=== PATIENT | male | born 1950 | race Caucasian/White ===

== ENCOUNTER → 2023-08-05 | Outpatient (CLI) | payer MEDICARE ==
--- NOTE | 2023-08-05 17:10 | MR ---
EXAMINATION TYPE: MR brain wo con DATE OF EXAM: 08/05/2023 4:31 PM CLINICAL INDICATION:Male, 73 years old with history of G40.909 EPILEPSY, UNSP, NOT INTRACTABLE, WITHO UT S; PHH, Parkinson's disease. Seizure COMPARISON: None. TECHNIQUE: Multi planar, multi sequence imaging was performed through the brain including: T1, T2, In version recovery, Diffusion weighted imaging, and gradient echo imaging. No gadolinium was given. FINDINGS: Mild cerebral atrophy with proportional dilation of ventricular system. Minimal scattered foci of h igh T2 signal intensity are seen within the periventricular white matter. Midline structures show no abnormality. Diffusion-weighted imaging shows no evidence of restricted diffusion. The susceptibility weighted images do not reveal any evidence for micro-hemorrhage. The bone marrow signal is within normal limits. Paranasal sinuses and mastoid air cells: Moderate paranasal sinus mucosal thickening in the maxillary sinuses right greater than left. Visualized orbits: Orbital contents are intact. IMPRESSION: 1. No evidence of intracranial mass or acute/subacute infarct. 2. Mild cerebral atrophy changes with proportional dilation to the ventricular system. 3. Minimal nonspecific white matter changes, likely secondary to small vessel ischemic disease.
== END | disposition home or self-care (01) ==
LOC: RADMRIMAIN 15:44
PROVIDERS: ATTEND Psychiatry & Neurology Neurology
DX: G40.909 Epilepsy, unspecified, not intractable, without status epilepticus (principal); G31.9 Degenerative disease of nervous system, unspecified; R90.82 White matter disease, unspecified; I67.82 Cerebral ischemia; G20.A1 Parkinson's disease without dyskinesia, without mention of fluctuations
CPT/HCPCS: 70551

== ENCOUNTER 2024-02-08 23:39 | Emergency (ER) | payer MEDICARE ==
[2024-02-08 23:48] VITALS: TEMP 98.3
--- NOTE | 2024-02-09 02:15 | ED ---
General Adult HPI - General Chief complaint: Shortness of Breath Stated complaint: ORAL PAIN Time Seen by Provider: 02/09/24 01:39 Source: patient Mode of arrival: wheelchair Limitations: no limitations - History of Present Illness Initial comments: This patient is a 73-year-old man who presents to have evaluation of sore throat and difficulty swallowing. The patient notes that it came a little over a week ago. He had called his physician, had a phone interview and then was prescribed a course of azithromycin which she has finished. Patient complains of pain that is worse with swallowing. The patient states that it feels like he is congested in his throat. He is able to swallow. Has not noted change in voice. No fever. Onset/Timin -: week(s) Quality: aching Consistency: constant Improves with: none Worsens with: other (Swallowing) Associated Symptoms: denies other symptoms Treatments Prior to Arrival: none - Related Data Home Medications Medication Instructions Recorded Confirmed Aspirin EC [Ecotrin] 325 mg PO DAILY 02/09/24 02/09/24 Carbidopa-Levodopa 25-100 mg 1 tab PO TID 02/09/24 02/09/24 [Sinemet 25-100 mg] Furosemide [Lasix] 20 mg PO DAILY 02/09/24 02/09/24 Metoprolol Succinate (ER) [Toprol 100 mg PO DAILY 02/09/24 02/09/24 XL] rOPINIRole HCL [Requip] 3 mg PO TID 02/09/24 02/09/24 Previous Rx's Medication Instructions Recorded Folic Acid 1 mg PO DAILY tab 02/12/24 Multivitamins, Thera [Multivitamin 1 each PO DAILY tab 02/12/24 (formulary)] Thiamine [Vitamin B-1] 100 mg PO DAILY tab 02/12/24 Allergies Allergy/AdvReac Type Severity Reaction Status Date / Time No Known Allergies Allergy Verified 02/09/24 16:29 Review of Systems ROS Statement: Those systems with pertinent positive or pertinent negative responses have been documented in the HPI. ROS Other: All systems not noted in ROS Statement are negative. Constitutional: Denies: fever, chills, weakness ENT: Reports: throat pain, congestion. Denies: hearing loss Respiratory: Reports: cough. Denies: dyspnea, wheezes Cardiovascular: Denies: chest pain, palpitations, orthopnea, edema Gastrointestinal: Denies: abdominal pain, nausea, vomiting, diarrhea Skin: Denies: rash Neurological: Denies: headache, weakness Past Medical History Past Medical History: Hypertension Additional Past Medical History / Comment(s): parkinsons History of Any Multi-Drug Resistant Organisms: None Reported Past Surgical History: Hernia Repair Past Psychological History: No Psychological Hx Reported Smoking Status: Never smoker Past Alcohol Use History: Occasional Past Drug Use History: None Reported General Exam Limitations: no limitations General appearance: alert, in no apparent distress Head exam: Present: atraumatic, normocephalic Eye exam: Present: normal appearance. Absent: scleral icterus, conjunctival injection Neck exam: Present: normal inspection, full ROM. Absent: lymphadenopathy Respiratory exam: Present: rhonchi. Absent: respiratory distress, wheezes, rales, stridor, accessory muscle use Cardiovascular Exam: Present: regular rate, normal rhythm, normal heart sounds. Absent: systolic murmur, diastolic murmur, rubs, gallop GI/Abdominal exam: Present: soft. Absent: distended, tenderness, guarding, rebound, rigid Extremities exam: Present: normal inspection, normal capillary refill. Absent: pedal edema Back exam: Present: normal inspection Skin exam: Present: warm, dry, intact, normal color. Absent: rash Course Vital Signs 02/08/24 02/09/24 02/09/24 23:43 00:34 01:30 Temperature 98.3 F Pulse Rate 105 H 80 84 Respiratory 16 20 12 Rate Blood Pressure 120/73 111/61 136/71 O2 Sat by Pulse 99 99 100 Oximetry 02/09/24 02/09/24 02/09/24 03:00 04:16 05:19 Temperature Pulse Rate 90 87 77 Respiratory 17 18 18 Rate Blood Pressure 129/66 115/71 135/78 O2 Sat by Pulse 98 99 98 Oximetry Medical Decision Making - Medical Decision Making The patient had chest x-ray that I interpreted as negative for acute infiltrate, pneumothorax, congestive heart failure. The patient had CT scan soft tissue of the neck that I interpreted as showing some dilation of the esophagus down into the chest. No airway impingement. Was pt. sent in by a medical professional or institution (, PA, [employer]URSING, urgent care, hospital, or fdc...) When possible be specific @ -[No] Did you speak to anyone other than the patient for history (EMS, parent, family, police, friend...)? What history was obtained from this source @ -[Family did contribute history Did you review nursing and triage notes (agree or disagree)? Why? @ -[I reviewed and agree with nursing and triage notes] Were old charts reviewed (outside hosp., previous admission, EMS record, old EKG, old radiological studies, urgent care reports/EKG's, fdc records)? Report findings @ -[No old charts were reviewed] Differential Diagnosis (chest pain, altered mental status, abdominal pain women, abdominal pain men, vaginal bleeding, weakness, fever, dyspnea, syncope, headache, dizziness, GI bleed, back pain, seizure, CVA, palpatations, mental health, musculoskeletal)? @ -[Differential diagnosis includes pharyngitis, upper respiratory infection, abscess, pneumonia, aspiration, achalasia, malignancy, this list not comprehensive EKG interpreted by me (3pts min.). @ -[As above] X-rays interpreted by me (1pt min.). @ -[I interpreted as above CT interpreted by me (1pt min.). @ -[As above U/S interpreted by me (1pt. min.). @ -[None done] What testing was considered but not performed or refused? (CT, X-rays, U/S, labs)? Why? @ -[None] What meds were considered but not given or refused? Why? @ -[None] Did you discuss the management of the patient with other professionals (professionals i.e. , PA, [employer] NURSING, lab, RT, psych nurse, director social welfare, narcotics and/or vice detective, teacher, aviation tactical readiness officer, outpatient case manager)? Give summary @ -[No] Was smoking cessation discussed for >3mins.? @ -[No] Was critical care preformed (if so, how long)? @ -[No] Were there social determinants of health that impacted care today? How? (Homelessness, low income, unemployed, alcoholism, drug addiction, transportation, low edu. Level, literacy, decrease access to med. care, [facility], rehab)? @ -[No] Was there de-escalation of care discussed even if they declined (Discuss DNR or withdrawal of care, Hospice)? DNR status @ -[No] What co-morbidities impacted this encounter? (DM, HTN, Smoking, COPD, CAD, Cancer, CVA, ARF, Chemo, Hep., AIDS, mental health diagnosis, sleep apnea, morbid obesity)? @ -[None] Was patient admitted / discharged? Hospital course, mention meds given and route, prescriptions, significant lab abnormalities, going to OR and other pertinent info. @ -[Patient is 74-year-old man presenting with cough and sore throat. He is sent for CT and is found to have what appears to be some esophageal dilation the distal end which is not visible on CT scan. At this point patient will require further swallowing study. This was discussed and the patient will attempt to have this through outpatient radiology, discussed return parameters as well as the appropriate further care and follow-up Undiagnosed new problem with uncertain prognosis? @ -[No] Drug Therapy requiring intensive monitoring for toxicity (Heparin, Nitro, Insulin, Cardizem)? @ -[No] Were any procedures done? @ -[No] Diagnosis/symptom? @ -[Acute sore throat Esophageal dysmotility Acute, or Chronic, or Acute on Chronic? @ -[Acute Uncomplicated (without systemic symptoms) or Complicated (systemic symptoms)? @ -[default] Side effects of treatment? @ -[No] Exacerbation, Progression, or Severe Exacerbation? @ -[No] Poses a threat to life or bodily function? How? (Chest pain, USA, AR, pneumonia, PE, COPD, DKA, ARF, appy, cholecystitis, CVA, Diverticulitis, Homicidal, Suicid al, threat to staff... and all critical care pts) @ -[Yes there is definite possibility of life-threatening condition including malignancy that patient understands requires further workup with close follow-up and return parameters discussed - Lab Data Result diagrams: 02/09/24 02:08 02/09/24 02:21 Lab Results 02/09/24 02/09/24 02/09/24 Range/Units 02:08 02:21 02:21 WBC 10.2 (3.8-10.6) k/uL RBC 4.72 (4.30-5.90) m/uL Hgb 14.3 (13.0-17.5) gm/dL Hct 42.6 (39.0-53.0) % MCV 90.2 (80.0-100.0) fL MCH 30.3 (25.0-35.0) pg MCHC 33.6 (31.0-37.0) g/dL RDW 14.9 (11.5-15.5) % Plt Count 263 (150-450) k/uL MPV 7.4 Neutrophils % 73 % Lymphocytes % 18 % Monocytes % 5 % Eosinophils % 2 % Basophils % 0 % Neutrophils # 7.4 (1.3-7.7) k/uL Lymphocytes # 1.8 (1.0-4.8) k/uL Monocytes # 0.5 (0-1.0) k/uL Eosinophils # 0.2 (0-0.7) k/uL Basophils # 0.0 (0-0.2) k/uL Sodium 139 (137-145) mmol/L Potassium 4.2 (3.5-5.1) mmol/L Chloride 107 (98-107) mmol/L Carbon Dioxide 30 (22-30) mmol/L Anion Gap 2 mmol/L BUN 11 (9-20) mg/dL Creatinine 0.60 L (0.66-1.25) mg/dL Est GFR (CKD-EPI)AfAm >90 (>60 ml/min/1.73 sqM) Est GFR (CKD-EPI)NonAf >90 (>60 ml/min/1.73 sqM) Glucose 95 (74-99) mg/dL Calcium 9.2 (8.4-10.2) mg/dL Total Bilirubin 1.6 H (0.2-1.3) mg/dL AST 30 (17-59) U/L ALT <6 (4-49) U/L Alkaline Phosphatase 94 (38-126) U/L C-Reactive Protein 0.8 (<1.0) mg/dL Total Protein 7.5 (6.3-8.2) g/dL Albumin 4.4 (3.5-5.0) g/dL Influenza Type A (PCR) (Not Detectd) Influenza Type B (PCR) (Not Detectd) RSV (PCR) (Not Detectd) SARS-CoV-2 (PCR) (Not Detectd) Group A Strep (PCR) NOT DETECTED (Not Detectd) 02/09/24 Range/Units 02:21 WBC (3.8-10.6) k/uL RBC (4.30-5.90) m/uL Hgb (13.0-17.5) gm/dL Hct (39.0-53.0) % MCV (80.0-100.0) fL MCH (25.0-35.0) pg MCHC (31.0-37.0) g/dL RDW (11.5-15.5) % Plt Count (150-450) k/uL MPV Neutrophils % % Lymphocytes % % Monocytes % % Eosinophils % % Basophils % % Neutrophils # (1.3-7.7) k/uL Lymphocytes # (1.0-4.8) k/uL Monocytes # (0-1.0) k/uL Eosinophils # (0-0.7) k/uL Basophils # (0-0.2) k/uL Sodium (137-145) mmol/L Potassium (3.5-5.1) mmol/L Chloride (98-107) mmol/L Carbon Dioxide (22-30) mmol/L Anion Gap mmol/L BUN (9-20) mg/dL Creatinine (0.66-1.25) mg/dL Est GFR (CKD-EPI)AfAm (>60 ml/min/1.73 sqM) Est GFR (CKD-EPI)NonAf (>60 ml/min/1.73 sqM) Glucose (74-99) mg/dL Calcium (8.4-10.2) mg/dL Total Bilirubin (0.2-1.3) mg/dL AST (17-59) U/L ALT (4-49) U/L Alkaline Phosphatase (38-126) U/L C-Reactive Protein (<1.0) mg/dL Total Protein (6.3-8.2) g/dL Albumin (3.5-5.0) g/dL Influenza Type A (PCR) Not Detected (Not Detectd) Influenza Type B (PCR) Not Detected (Not Detectd) RSV (PCR) Not Detected (Not Detectd) SARS-CoV-2 (PCR) Not Detected (Not Detectd) Group A Strep (PCR) (Not Detectd) Disposition Clinical Impression: Cough, Esophageal abnormality Disposition: HOME SELF-CARE Condition: Good Instructions (If sedation given, give patient instructions): Esophagitis (ED), Aspiration Precautions (ED) Additional Instructions: As we discussed, follow with outpatient radiology to have a barium swallow. Is patient prescribed a controlled substance at d/c from ED?: No Referrals: Dhaval Fontana DO [Primary Care Provider] - 1-2 days
--- NOTE | 2024-02-09 02:37 | XR ---
EXAM: XR Chest, 2 Views CLINICAL HISTORY: ITS.REASON XR Reason: cough TECHNIQUE: Frontal and lateral views of the chest. COMPARISON: No relevant prior studies available. IMPRESSION: Mild right pleural effusion.
[2024-02-09 02:39] LABS: Basophils % (A) 0 %; Eosinophils # (A) 0.2 k/uL (0-0.7); Eosinophils % (A) 2 %; HCT 42.6 % (39.0-53.0); HGB 14.3 gm/dL (13.0-17.5); Lymphocytes # (A) 1.8 k/uL (1.0-4.8); Lymphocytes % (A) 18 %; MCH 30.3 pg (25.0-35.0); MCHC 33.6 g/dL (31.0-37.0); MCV 90.2 fL (80.0-100.0); Mean Platelet Volume 7.4; Monocytes # (A) 0.5 k/uL (0-1.0); Monocytes % (A) 5 %; Neutrophils # (A) 7.4 k/uL (1.3-7.7); Neutrophils % (A) 73 %; Platelet Count 263 k/uL (150-450); RBC 4.72 m/uL (4.30-5.90); RDW 14.9 % (11.5-15.5); WBC 10.2 k/uL (3.8-10.6)
[2024-02-09 03:12] LABS: ALT <6 U/L (4-49); AST 30 U/L (17-59); African American GFR (CKD) >90 (>60 ml/min/1.73 sqM); Albumin 4.4 g/dL (3.5-5.0); Alkaline Phosphatase 94 U/L (38-126); Anion Gap 2 mmol/L; Blood Urea Nitrogen 11 mg/dL (9-20); C Reactive Protein 0.8 mg/dL (<1.0); Calcium 9.2 mg/dL (8.4-10.2); Carbon Dioxide 30 mmol/L (22-30); Chloride 107 mmol/L (98-107); Glucose 95 mg/dL (74-99); Non-African American GFR(CKD) >90 (>60 ml/min/1.73 sqM); Potassium 4.2 mmol/L (3.5-5.1); Sodium 139 mmol/L (137-145); Total Bilirubin 1.6 mg/dL (0.2-1.3); Total Protein 7.5 g/dL (6.3-8.2)
[2024-02-09 04:17] VITALS: RESP 18
--- NOTE | 2024-02-09 04:21 | CT ---
EXAM: CT Neck With Intravenous Contrast CLINICAL HISTORY: ITS.REASON CT Reason: dsyphagia TECHNIQUE: Axial computed tomography images of the neck with intravenous contrast. CTDI is 7 mGy and DLP is 212.9 mGy-cm. This CT exam was performed using one or more of the following dose reduction techniques: automated exposure control, adjustment of the mA and/or kV according to patient size, and/or use of iterative reconstruction technique. COMPARISON: No relevant prior studies available. FINDINGS: Nasal cavity/septum: Unremarkable. Nasopharynx: Unremarkable. Oropharynx: Unremarkable. No significant tonsillar enlargement. No peritonsillar abscess. Hypopharynx: Unremarkable. Larynx: Unremarkable. Normal epiglottis. Trachea: Unremarkable. Retropharyngeal space: Unremarkable. Submandibular/parotid glands: Unremarkable. Glands are normal in size. Thyroid: Unremarkable. No enlarged or calcified nodules. Bones/joints: No acute fracture. Extensive dental caries with numerous. Crohn's disease about residual maxillary and mandibular teeth concerning for periapical abscesses. Recommend dental consult. Soft tissues: There is an air-filled and dilated esophagus. Vasculature: No acute findings. Lymph nodes: Prominent cervical lymph nodes. Sinuses: Chronic maxillary sinusitis. No acute sinusitis. Lung apices: Unremarkable as visualized. IMPRESSION: Air-filled and dilated esophagus concerning for distal esophageal stenosis. Recommend barium swallow study for further evaluation.
[2024-02-09 05:20] VITALS: BP 135/78; PULSE 77
== END 2024-02-09 05:19 | disposition home or self-care (01) ==
LOC: EC 23:39
CPT/HCPCS: 36415; 70491; 71046; 80053; 85025; 86140; 87636; 87651; 99285

== ENCOUNTER 2024-02-09 14:25 | Observation (INO) | payer MEDICARE ==
[2024-02-09] MEDS: methylPREDNISolone SOD SUCCI 125 MG/2 ML VIAL IV STA (14:54)
[2024-02-09] MEDS: diphenhydrAMINE 50 MG/ML 1 ML VIAL IVP STA (14:54)
[2024-02-09 15:13] LABS: Basophils % (A) 0 %; Eosinophils # (A) 0.3 k/uL (0-0.7); Eosinophils % (A) 3 %; HCT 42.2 % (39.0-53.0); HGB 13.8 gm/dL (13.0-17.5); Lymphocytes # (A) 1.8 k/uL (1.0-4.8); Lymphocytes % (A) 22 %; MCH 29.8 pg (25.0-35.0); MCHC 32.6 g/dL (31.0-37.0); MCV 91.3 fL (80.0-100.0); Mean Platelet Volume 6.7; Monocytes # (A) 0.3 k/uL (0-1.0); Monocytes % (A) 4 %; Neutrophils # (A) 5.8 k/uL (1.3-7.7); Neutrophils % (A) 69 %; Platelet Count 297 k/uL (150-450); RBC 4.62 m/uL (4.30-5.90); RDW 14.4 % (11.5-15.5); WBC 8.4 k/uL (3.8-10.6)
[2024-02-09 15:24] LABS: ALT 12 U/L (4-49); African American GFR (CKD) >90 (>60 ml/min/1.73 sqM); Albumin 4.4 g/dL (3.5-5.0); Anion Gap 6 mmol/L; Blood Urea Nitrogen 9 mg/dL (9-20); C Reactive Protein 1.7 mg/dL (<1.0); Calcium 9.3 mg/dL (8.4-10.2); Carbon Dioxide 26 mmol/L (22-30); Chloride 106 mmol/L (98-107); Glucose 93 mg/dL (74-99); Non-African American GFR(CKD) >90 (>60 ml/min/1.73 sqM); Sodium 138 mmol/L (137-145); Total Bilirubin 2.1 mg/dL (0.2-1.3); Total Protein 7.3 g/dL (6.3-8.2)
[2024-02-09 15:34] LABS: AST 40 U/L (17-59); Alkaline Phosphatase 96 U/L (38-126); Potassium 4.3 mmol/L (3.5-5.1)
--- NOTE | 2024-02-09 17:20 | CT ---
EXAMINATION TYPE: CT chest angio for PE, CT soft tissue neck w con CT DLP: 386.1 (accession [id number]), 267.9 (accession [id number]) mGycm, Automated exposure control for dose reduction was used. DATE OF EXAM: 02/09/2024 4:51 PM COMPARISON: CT same day 02/09/2024 CLINICAL INDICATION: Male, 73 years old with history of sob; SOB (accession [id number]), SOB, difficult y swallowing (accession [id number]) TECHNIQUE/CONTRAST: CTA scan of the thorax is performed with IV Contrast, patient injected with 60 cc (accession [id number] ), 40 cc (accession [id number]) mL of Isovue 370, MIP images are created and reviewed these are created on a separate workstation.. TECHNIQUE: Standard enhanced CT of the neck. Axial sections with coronal and sagittal reformats were obtained. Contrast used:40 cc mL of Isovue 370 with IV Contrast, (None if empty) Oral contrast used: (None if empty) FINDINGS: FINDINGS: Brain: Visualized portions are grossly unremarkable. Orbits: Unremarkable Sinuses: Grossly unremarkable. Spaces of the neck: Clear and symmetric.r Musculoskeletal: No acute osseous pathology. Lymph nodes: Multiple nonenlarged lymph nodes are seen along both anterior chains of the neck. Vascular structures: Visualized major arteries are patent without evidence of aneurysm. Thoracic Inlet/airway: Airway is patent. The lung apices are clear. Soft tissues/Thyroid: Thyroid and remainder of the soft tissues are unremarkable. Other: none. Pulmonary Artery: There is no evidence for a filling defect within the pulmonary vasculature to sugge st acute pulmonary embolism. The pulmonary artery is of normal size. Lungs/Pleura: Right pleural effusion with split pleural sign. There is associated atelectasis extendi ng away from the pleural effusion towards the hilum. Airway: Large airways are patent. Heart: Heart is within normal limits for size. Atherosclerosis of the arterial vasculature. Vasculature: No evidence of aortic aneurysm. Mediastinum: Debris extending throughout the esophagus compatible with ingested contents and a reflux . Right low paratracheal lymph node which is enlarged measuring up to 15 mm in short axis. Musculoskeletal: No acute osseous abnormalities Soft Tissues/lymph nodes: Prominent axillary lymph nodes measuring up to 11 mm in short axis. Lower neck: r prominent lymph nodes in the left lower neck measuring up to 8 mm in the supraclavicula r region. Upper Abdomen: Postsurgical change the gastroesophageal junction. High density material thought to be in the possibly gallbladder which is partially visualized. Scattered colonic diverticula. Multiple p rominent retroperitoneal lymph nodes.r left adrenal nodule measuring up to 13 mm. IMPRESSION: 1. No evidence of pulmonary embolism. 2. Patulous esophagus with layering ingested contents versus gastroesophageal reflux.. 3. Prominent retroperitoneal lymph nodes, mediastinal lymph nodes, left low in neck lymph nodes and l eft axillary lymph nodes. Correlate for history of malignancy. 4. Right pleural effusion possibly complex pleural effusion such as empyema given split pleural sign. 5. Indeterminate left adrenal nodule measuring 13 mm [facility] Sarita Wagner, , 02/09/2024 5:18 PM
--- NOTE | 2024-02-09 18:07 | ED ---
SOB HPI - General Chief Complaint: Shortness of Breath Stated Complaint: SUSANA Time Seen by Provider: 02/09/24 14:35 Source: patient Mode of arrival: EMS Limitations: no limitations - History of Present Illness Initial Comments: 73-year-old male presents to the emergency department reporting shortness of breath. Patient was seen overnight for the same complaint. Laboratory testing was completed. CT of the neck was performed which demonstrated some ingested material within the esophagus. Patient was discharged home. states that his breathing is not improving. He does have audible upper upper airway stridor. He denies fevers. No history of allergic reaction. No tongue swelling. No drooling. Patient is able to manage his foods. He denies history of COPD or asthma. He used his 's inhaler but states that it made his sy mptoms worse. He does admit to sore throat. He was seen 1 week ago for these complaints and was started on azithromycin without improvement. No other alleviating, precipitating or modifying factors - Related Data Home Medications Medication Instructions Recorded Confirmed Aspirin EC [Ecotrin] 325 mg PO DAILY 02/09/24 02/09/24 Carbidopa-Levodopa 25-100 mg 1 tab PO TID 02/09/24 02/09/24 [Sinemet 25-100 mg] Furosemide [Lasix] 20 mg PO DAILY 02/09/24 02/09/24 Metoprolol Succinate (ER) [Toprol 100 mg PO DAILY 02/09/24 02/09/24 XL] rOPINIRole HCL [Requip] 3 mg PO TID 02/09/24 02/09/24 Previous Rx's Medication Instructions Recorded Folic Acid 1 mg PO DAILY tab 02/12/24 Multivitamins, Thera [Multivitamin 1 each PO DAILY tab 02/12/24 (formulary)] Thiamine [Vitamin B-1] 100 mg PO DAILY tab 02/12/24 Allergies Allergy/AdvReac Type Severity Reaction Status Date / Time No Known Allergies Allergy Verified 02/09/24 16:29 Review of Systems ROS Statement: Those systems with pertinent positive or pertinent negative responses have been documented in the HPI. ROS Other: All systems not noted in ROS Statement are negative. Past Medical History Past Medical History: Hypertension Additional Past Medical History / Comment(s): parkinsons History of Any Multi-Drug Resistant Organisms: None Reported Past Surgical History: Hernia Repair Past Psychological History: No Psychological Hx Reported Smoking Status: Never smoker Past Alcohol Use History: Occasional Past Drug Use History: None Reported General Exam Limitations: no limitations General appearance: alert Head exam: Present: atraumatic, normocephalic, normal inspection Eye exam: Present: normal appearance, PERRL, EOMI. Absent: scleral icterus, conjunctival injection, periorbital swelling ENT exam: Present: normal exam, mucous membranes moist, other (No tongue swelling. Floor of mouth is soft. No drooling. Posterior pharynx does not demonstrate swelling) Neck exam: Present: other (Audible stridor) Respiratory exam: Present: wheezes Cardiovascular Exam: Present: normal rhythm, tachycardia, normal heart sounds. Absent: systolic murmur, diastolic murmur, rubs, gallop, clicks GI/Abdominal exam: Present: soft, normal bowel sounds. Absent: distended, tenderness, guarding, rebound, rigid Extremities exam: Present: normal inspection, full ROM, normal capillary refill. Absent: tenderness, pedal edema, joint swelling, calf tenderness Neurological exam: Present: alert, oriented X3, CN II-XII intact Psychiatric exam: Present: flat affect Skin exam: Present: warm, dry, intact, normal color. Absent: rash Course Vital Signs 02/09/24 02/09/24 02/09/24 14:32 17:40 19:38 Temperature 98.0 F 98.1 F Pulse Rate 107 H 108 H 105 H Respiratory 32 H 22 22 Rate Blood Pressure 147/77 134/85 142/74 O2 Sat by Pulse 98 95 95 Oximetry 02/09/24 02/09/24 02/10/24 23:21 23:42 01:58 Temperature Pulse Rate 107 H 112 H 90 Respiratory 20 Rate Blood Pressure 112/83 O2 Sat by Pulse 97 Oximetry 02/10/24 02/10/24 02/10/24 03:26 07:57 08:07 Temperature Pulse Rate 89 96 94 Respiratory 20 Rate Blood Pressure 112/65 O2 Sat by Pulse 97 Oximetry 02/10/24 02/10/24 02/10/24 09:58 10:52 11:02 Temperature 98.1 F Pulse Rate 100 90 92 Respiratory 20 Rate Blood Pressure 129/70 O2 Sat by Pulse 95 Oximetry 02/10/24 02/10/24 02/10/24 16:01 16:08 16:11 Temperature Pulse Rate 76 73 80 Respiratory 18 Rate Blood Pressure 116/67 O2 Sat by Pulse 100 Oximetry Medical Decision Making - Medical Decision Making Was pt. sent in by a medical professional or institution (RAY Smith, PRIVATE EQUITY ANALYST, urgent care, hospital, or longterm...) When possible be specific @ -No Did you speak to anyone other than the patient for history (EMS, parent, family, police, friend...)? What history was obtained from this source @ -Spoke with the for history Did you review nursing and triage notes (agree or disagree)? Why? @ -I reviewed and agree with nursing and triage notes Were old charts reviewed (outside hosp., previous admission, EMS record, old EKG, old radiological studies, urgent care reports/EKG's, longterm records)? Report findings @ -I reviewed the CT report from earlier today. Also reviewed the ER note Differential Diagnosis (chest pain, altered mental status, abdominal pain women, abdominal pain men, vaginal bleeding, weakness, fever, dyspnea, syncope, headache, dizziness, GI bleed, back pain, seizure, CVA, palpatations, mental health, musculoskeletal)? @ -Differential Dyspnea: Coronary syndrome, arrhythmia, tamponade, asthma, COPD, pulmonary embolism, pneumonia, pneumothorax, pulmonary effusion, anaphylaxis, diabetic ketoacidosis, flailed chest, pulmonary contusion, diaphragmatic rupture, anemia, neuromuscu lar, this is not meant to be an all-inclusive list. EKG interpreted by me (3pts min.). @ -Not done X-rays interpreted by me (1pt min.). @ -None done CT interpreted by me (1pt min.). @ -Yes and demonstrates enlarged mediastinal lymph nodes. Airway is patent U/S interpreted by me (1pt. min.). @ -None done What testing was considered but not performed or refused? (CT, X-rays, U/S, labs)? Why? @ -None What meds were considered but not given or refused? Why? @ -None Did you discuss the management of the patient with other professionals (professionals i.e. RAY Smith, PRIVATE EQUITY ANALYST, lab, RT, psych nurse, medical social worker, supervisor instrument maintenance, teacher, employment security officer, bilingual case manager)? Give summary @ -Discussed case with Dr. Fontana Was smoking cessation discussed for >3mins.? @ -No Was critical care preformed (if so, how long)? @ -No Were there social determinants of health that impacted care today? How? (Homelessness, low income, unemployed, alcoholism, drug addiction, transportation, low edu. Level, literacy, decrease access to med. care, longterm, rehab)? @ -No Was there de-escalation of care discussed even if they declined (Discuss DNR or withdrawal of care, Hospice)? DNR status @ -No What co-morbidities impacted this encounter? (DM, HTN, Smoking, COPD, CAD, Cancer, CVA, ARF, Chemo, Hep., AIDS, mental health diagnosis, sleep apnea, morbid obesity)? @ -Parkinson's Was patient admitted / discharged? Hospital course, mention meds given and route, prescriptions, significant lab abnormalities, going to OR and other pertinent info. @ -Upon arrival patient seen and evaluated in room 7. Thorough history and physical exam was performed. IV access was established. Patient was given a dose of Solu-Medrol. Laboratory studies are conducted. Due to worsening stridor I did CT patient's chest. There is some enlarged lymph nodes however no identifiable cause for the stridor. Patient will be admitted. Spoke with Dr. Fontana for the admission Undiagnosed new problem with uncertain prognosis? @ -Yes Drug Therapy requiring intensive monitoring for toxicity (Heparin, Nitro, Insulin, Cardizem)? @ -No Were any procedures done? @ -No Diagnosis/symptom? @ -Acute upper airway stridor Acute, or Chronic, or Acute on Chronic? @ -Acute Uncomplicated (without systemic symptoms) or Complicated (systemic symptoms)? @ -Complicated Side effects of treatment? @ -No Exacerbation, Progression, or Severe Exacerbation? @ -No Poses a threat to life or bodily function? How? (Chest pain, USA, PA, pneumonia, PE, COPD, DKA, ARF, appy, cholecystitis, CVA, Diverticulitis, Homicidal, Suicidal, threat to staff... and all critical care pts) @ -Yes as there is some concern for the patient's airway - Lab Data Result diagrams: 02/10/24 10:40 02/12/24 06:09 Lab Results 02/09/24 02/09/24 Range/Units 14:58 14:58 WBC 8.4 (3.8-10.6) k/uL RBC 4.62 (4.30-5.90) m/uL Hgb 13.8 (13.0-17.5) gm/dL Hct 42.2 (39.0-53.0) % MCV 91.3 (80.0-100.0) fL MCH 29.8 (25.0-35.0) pg MCHC 32.6 (31.0-37.0) g/dL RDW 14.4 (11.5-15.5) % Plt Count 297 (150-450) k/uL MPV 6.7 Neutrophils % 69 % Lymphocytes % 22 % Monocytes % 4 % Eosinophils % 3 % Basophils % 0 % Neutrophils # 5.8 (1.3-7.7) k/uL Lymphocytes # 1.8 (1.0-4.8) k/uL Monocytes # 0.3 (0-1.0) k/uL Eosinophils # 0.3 (0-0.7) k/uL Basophils # 0.0 (0-0.2) k/uL Sodium 138 (137-145) mmol/L Potassium 4.3 (3.5-5.1) mmol/L Chloride 106 (98-107) mmol/L Carbon Dioxide 26 (22-30) mmol/L Anion Gap 6 mmol/L BUN 9 (9-20) mg/dL Creatinine 0.57 L (0.66-1.25) mg/dL Est GFR (CKD-EPI)AfAm >90 (>60 ml/min/1.73 sqM) Est GFR (CKD-EPI)NonAf >90 (>60 ml/min/1.73 sqM) Glucose 93 (74-99) mg/dL Calcium 9.3 (8.4-10.2) mg/dL Total Bilirubin 2.1 H (0.2-1.3) mg/dL AST 40 (17-59) U/L ALT 12 (4-49) U/L Alkaline Phosphatase 96 (38-126) U/L C-Reactive Protein 1.7 H (<1.0) mg/dL Total Protein 7.3 (6.3-8.2) g/dL Albumin 4.4 (3.5-5.0) g/dL Disposition Clinical Impression: Esophageal abnormality, Stridor Disposition: ADMITTED IP TO THIS HOSP Condition: Stable Is patient prescribed a controlled substance at d/c from ED?: No Time of Disposition: 18:06 Decision to Admit Reason: Admit from EC Decision Date: 02/09/24 Decision Time: 18:07
[2024-02-09] MEDS ORDERED: NALOXONE 0.4 MG/ML 1 ML VIAL IV PRN (18:23)
[2024-02-09] MEDS: DEXAMETHASONE SOD PHOSPHATE 10 MG/ML 1 ML VIAL IVP SCH (19:36)
[2024-02-09] MEDS: SODIUM CHLORIDE 0.9% 1,000 ML IV SCH (20:08)
[2024-02-09] MEDS: CARBIDOPA-LEVODOPA 25-100 MG 1 EACH TAB PO SCH (23:11)
[2024-02-09] MEDS: IPRATROPIUM-ALBUTEROL 3 ML NEB INHALATION SCH (23:21)
--- NOTE | 2024-02-10 04:15 | P.CNPUL ---
History of Present Illness Consult date: 02/10/24 Requesting physician: Georgette Bender Reason for consult: other (Stridor) Chief complaint: Painful swallowing and new onset difficulty breathing History of present illness: Patient is a 73-year-old male with past medical history significant for hypertension, GERD, Parkinson's disease. He is a former smoker. Drinks 3, 12 ounce, beers per day. Initially, presented to emergency department yesterday morning with complaints of 2 weeks of painful swallowing and sore throat. Was treated with Z-Se on outpatient basis. He has had "noisy" breathing on and off for the last couple days. Presented emergency department for evaluation early yesterday morning, he was initially discharged home with instructions for outpatient follow up. Returned that evening with some shortness of breath. Denies any fevers. No drooling. No change in voice. Unclear HIB vaccination status. No known foreign body aspiration. Does have chronic ongoing issues with swallowing and food getting stuck in his throat per patient. CT of the soft tissue of the neck and chest with contrast showed patulous esophagus with layering ingested contents versus gastroesophageal reflux. Incidentally, there was some prominent retroperitoneal lymph nodes, and mediastinal lymph nodes, left sided cervical lymph nodes, and left axillary lymph nodes. Patient has no known history of malignancy. There is also a right pleural effusion with split pleural sign. Patient is currently being evaluated in the emergency department. He is sitting up in the bedside recliner. On room air. Not in any distress. There is some audible upper airway stridor. No palpable masses. Patient was started on IV steroids. ENT consult also placed. Patient may benefit from an laryngoscopy. CBC: WBC count 8.4, hemoglobin 13.8, hematocrit 42.2, platelets 297. CMP: Sodium 138, potassium 4.3, chloride 106, serum bicarb 26, BUN 9, creatinine 0.57, glucose 93. LFTs unremarkable. Not felt to be in any imminent danger of airway compromise. Heliox not available at our facility. continues on IV Decadron. Review of Systems Constitutional: Denies chills, Denies fever, Denies poor appetite, Denies weight gain, Denies weight loss Ears, nose, mouth and throat: Reports dysphagia, Reports neck fullness/pressure, Reports odynophagia, Reports sore throat, Denies ant. neck pain, Denies dental pain, Denies headache, Denies nasal congestion, Denies nasal discharge, Denies post-nasal drip, Denies sinus pressure, Denies swelling in mouth Cardiovascular: Denies chest pain, Denies leg edema, Denies orthopnea, Denies palpitations, Denies paroxysmal nocturnal dyspnea Respiratory: Reports dyspnea, Denies cough, Denies cough with sputum, Denies hemoptysis, Denies respiratory infections Gastrointestinal: Reports heartburn, Denies abdominal pain, Denies constipation, Denies diarrhea, Denies nausea, Denies vomiting Genitourinary: Denies dysuria Musculoskeletal: Denies limitation of motion Integumentary: Denies rash Neurological: Denies confusion, Denies seizures, Denies visual changes Psychiatric: Denies anxiety, Denies depression Past Medical History Past Medical History: Hypertension Additional Past Medical History / Comment(s): parkinsons History of Any Multi-Drug Resistant Organisms: None Reported Past Surgical History: Hernia Repair Past Psychological History: No Psychological Hx Reported Smoking Status: Never smoker Past Alcohol Use History: Occasional Past Drug Use History: None Reported Medications and Allergies Home Medications Medication Instructions Recorded Confirmed Type Aspirin EC [Ecotrin] 325 mg PO DAILY 02/09/24 02/09/24 History Carbidopa-Levodopa 25-100 mg 1 tab PO TID 02/09/24 02/09/24 History [Sinemet 25-100] Furosemide [Lasix] 20 mg PO DAILY 02/09/24 02/09/24 History Metoprolol Succinate (ER) [Toprol 100 mg PO DAILY 02/09/24 02/09/24 History Xl] rOPINIRole HCL [Requip] 3 mg PO TID 02/09/24 02/09/24 History Allergies Allergy/AdvReac Type Severity Reaction Status Date / Time No Known Allergies Allergy Verified 02/09/24 16:29 Physical Exam Vitals: Vital Signs Temp Pulse Resp BP Pulse Ox 02/10/24 01:58 90 20 112/83 97 02/09/24 23:42 112 H 02/09/24 23:21 107 H 02/09/24 19:38 98.1 F 105 H 22 142/74 95 02/09/24 17:40 108 H 22 134/85 95 02/09/24 14:32 98.0 F 107 H 32 H 147/77 98 Intake and Output 02/09/24 02/09/24 02/10/24 14:59 22:59 06:59 Other: Weight 54.431 kg GENERAL EXAM: Alert, 73-year-old white male, sitting up in bedside recliner, comfortable in no apparent distress. HEAD: Normocephalic and atraumatic EYES: Normal reaction of pupils, equal size. NOSE: Clear with pink turbinates. THROAT: No erythema or exudates. No drooling. No dysphonia NECK: No palpable masses, no JVD. Audible stridor. CHEST: No chest wall deformity. LUNGS: Equal air entry with diminished right lower lobe lung sounds. No crackles, rhonchi, wheezes. On room air. No conversational dyspnea or accessory muscle use. No tripoding. CVS: S1 and S2 normal with no audible murmur, regular rhythm. No extra heart sounds ABDOMEN: No hepatosplenomegaly, active bowel sounds, no guarding or rigidity. SPINE: No scoliosis or deformity SKIN: No rashes CENTRAL NERVOUS SYSTEM: No focal deficits, tone is normal in all 4 extremities. Resting tremor noted. EXTREMITIES: There is minimal bilateral lower extremity edema. No clubbing, or cyanosis. Peripheral pulses are intact. Results - Laboratory Findings CBC and BMP: 02/09/24 14:58 02/09/24 14:58 Abnormal lab findings: Abnormal Labs 02/09/24 14:58 Creatinine 0.57 L Total Bilirubin 2.1 H C-Reactive Protein 1.7 H - Diagnostic Findings Chest x-ray: image reviewed CT scan - chest: image reviewed Assessment and Plan Assessment: Stridor, without imminent threat of airway compromise. Currently on IV Decadron. Heliox not available at our facility. No need for intubation at this time. Odynophagia History of Parkinson's disease Chronic dysphagia History of GERD Generalized lymphadenopathy Right-sided pleural effusion Alcohol abuse, reportedly drinks 3, 12 ounce beers per day Former tobacco smoker Plan: Patient's medications, labs, imaging reviewed Patient currently on room air, not in any particular respiratory distress. No imminent threat to airway at this time. No need for intubation. Continues on IV Decadron. No obvious epiglottitis, masses, foreign objects on CT. Prominent lymphadenopathy noted. ENT also consulted, possible laryngoscopy May benefit from outpatient barium swallow. Case will be reviewed with my supervising physician We will continue to follow, additional recommendations forthcoming I have personally seen and examined the patient, performed the documentation and the assessment and plan as written. Number of minutes spent on the visit:20. Time with Patient: Greater than 30
--- NOTE | 2024-02-10 08:16 | US ---
EXAMINATION TYPE: US chest DATE OF EXAM: 02/10/2024 COMPARISON: CT 2023 CLINICAL INDICATION: Male, 73 years old with history of right pleural effusion; Pleural effusion. TECHNIQUE: Targeted ultrasound of the posterior lower bilateral hemithoraces EXAM MEASUREMENTS: Right Pleural Effusion pocket size: Limited visibility, possible small fluid pocket measures 1.9 cm, not marked. Right skin surface to fluid distance: 5.0 cm Left Pleural Effusion pocket size: 0 cm No fluid seen. Right side NOT marked for possible thoracentesis outside the dept. Left side NOT marked for possible thoracentesis outside the dept. Pulmonologists are able to review the images in the patient?s EMR. IMPRESSIONS: Small right pleural effusion. [facility], , 02/10/2024 8:14 AM
[2024-02-10] MEDS: METOPROLOL SUCCINATE (ER) 100 MG TAB.ER.24H PO SCH (09:59)
[2024-02-10] MEDS: FUROSEMIDE 20 MG TAB PO SCH (09:59)
[2024-02-10] MEDS: ASPIRIN 325 MG TAB PO SCH (09:59)
[2024-02-10 11:06] LABS: Basophils % (A) 0 %; Eosinophils % (A) 0 %; HCT 42.4 % (39.0-53.0); HGB 13.6 gm/dL (13.0-17.5); Lymphocytes # (A) 0.8 k/uL (1.0-4.8); Lymphocytes % (A) 13 %; MCH 29.1 pg (25.0-35.0); MCHC 32.1 g/dL (31.0-37.0); MCV 90.8 fL (80.0-100.0); Monocytes # (A) 0.1 k/uL (0-1.0); Monocytes % (A) 2 %; Neutrophils # (A) 5.1 k/uL (1.3-7.7); Neutrophils % (A) 84 %; Platelet Count 349 k/uL (150-450); RBC 4.67 m/uL (4.30-5.90); RDW 14.3 % (11.5-15.5); WBC 6.1 k/uL (3.8-10.6)
[2024-02-10 11:36] LABS: African American GFR (CKD) >90 (>60 ml/min/1.73 sqM); Anion Gap 7 mmol/L; Blood Urea Nitrogen 15 mg/dL (9-20); Calcium 9.3 mg/dL (8.4-10.2); Carbon Dioxide 25 mmol/L (22-30); Chloride 107 mmol/L (98-107); Glucose 143 mg/dL (74-99); Non-African American GFR(CKD) >90 (>60 ml/min/1.73 sqM); Potassium 4.2 mmol/L (3.5-5.1); Sodium 139 mmol/L (137-145)
[2024-02-10] MEDS ORDERED: LORazepam 2 MG/ML INJ IV PRN ×4 (14:34)
[2024-02-10] MEDS: MULTIVITAMINS, THERA 1 EACH TAB PO SCH (15:24)
[2024-02-10] MEDS: THIAMINE 100 MG TAB PO SCH (15:26)
[2024-02-10] MEDS ORDERED: DEXTROSE 50% SYRINGE 50 ML IVP PRN ×2 (15:52)
--- NOTE | 2024-02-10 15:52 | P.HPIM ---
History of Present Illness H&P Date: 02/10/24 Chief Complaint: Shortness of breath This is a 73-year-old gentleman with past medical history significant for daily alcohol use, drinks 3 X 12 ounce beers daily, former nicotine dependence, Parkinson's disease, hypertension and multiple other medical issues, presented to the ER initially on 02/07 with shortness of breath x 2 weeks accompanied by sore throat, discharged home on azithromycin. Returned to the ER with worsening shortness of breath-audible upper airway stridor accompanied by sore throat. Denies aspiration of or choking of food or foreign object. reports worsening of symptoms with his inhaler. denies drooling ,nausea, vomiting. Reports no difficulty swallowing his food. Denies change in voice. Denies fevers or chills. CT of the chest and soft tissue of the neck reported patulous esophagus with layering ingested contents versus gastroesophageal reflux, prominent retroperitoneal lymph nodes, mediastinal lymph nodes, left low in neck lymph nodes, and left axillary lymph nodes, right pleural effusion possibly complex pleural effusion judges empyema given split pleural sign, indeterminate left adrenal nodule measuring 13 mm. Reports no known history of malignancy. Afebrile, normal WBC, CRP 1.7,sitting up in chair, maintaining O2 sats in the high 90s on room air. ENT on consult. Continues on IV Decadron. Hematology and chemistry panels unremarkable, repeat labs pending. Review of Systems ROS Statement: Those systems with pertinent positive or pertinent negative responses have been documented in the HPI. ROS Other: All systems not noted in ROS Statement are negative. Past Medical History Past Medical History: Hypertension Additional Past Medical History / Comment(s): parkinsons History of Any Multi-Drug Resistant Organisms: None Reported Past Surgical History: Hernia Repair Past Psychological History: No Psychological Hx Reported Smoking Status: Never smoker Past Alcohol Use History: Occasional Past Drug Use History: None Reported Medications and Allergies Home Medications Medication Instructions Recorded Confirmed Type Aspirin EC [Ecotrin] 325 mg PO DAILY 02/09/24 02/09/24 History Carbidopa-Levodopa 25-100 mg 1 tab PO TID 02/09/24 02/09/24 History [Sinemet 25-100] Furosemide [Lasix] 20 mg PO DAILY 02/09/24 02/09/24 History Metoprolol Succinate (ER) [Toprol 100 mg PO DAILY 02/09/24 02/09/24 History Xl] rOPINIRole HCL [Requip] 3 mg PO TID 02/09/24 02/09/24 History Allergies Allergy/AdvReac Type Severity Reaction Status Date / Time No Known Allergies Allergy Verified 02/09/24 16:29 Physical Exam Vitals: Vital Signs Temp Pulse Resp BP Pulse Ox 02/10/24 11:02 92 02/10/24 10:52 90 02/10/24 09:58 98.1 F 100 20 129/70 95 02/10/24 08:07 94 02/10/24 07:57 96 02/10/24 03:26 89 20 112/65 97 02/10/24 01:58 90 20 112/83 97 02/09/24 23:42 112 H 02/09/24 23:21 107 H 02/09/24 19:38 98.1 F 105 H 22 142/74 95 02/09/24 17:40 108 H 22 134/85 95 02/09/24 14:32 98.0 F 107 H 32 H 147/77 98 PHYSICAL EXAM: VITAL SIGNS: [Reviewed] GENERAL: Alert and oriented x 3, sitting up in chair, no acute distress. HEENT: Cephalic, atraumatic, conjunctivae normal. eyes normal. NECK: Supple, no JVD. No palpable masses, no thyroid enlargement. CARDIOVASCULAR: S1, S2 regular. No murmur RESPIRATION: Unlabored, equal air entry, upper airway stridor with fine inspiratory wheezing. Bilateral bases diminished. ABDOMEN: Soft, nontender . No guarding. no masses palpable. No ascites, No hepatosplenomegaly.Bowel sounds heard. LEGS: Minimal lower extremity edema, no calf tenderness, no clubbing or cyanosis. Positive DP pulses NERVOUS SYSTEM: Cranial N 2-12 grossly normal. No focal deficits. Parkinson tremors ,strength and sensation grossly intact. Skin: Warm and dry, no rash. Results Results: PHYSICAL EXAM: VITAL SIGNS: [Reviewed] GENERAL: Alert and oriented x 3, sitting up in chair, fine tremors, no acute distress HEENT: Normocephalic, atraumatic, conjunctivae normal. eyes normal. NECK: Supple, no JVD. No thyroid enlargement. No LNs CARDIOVASCULAR: S1, S2 regular.. No murmur RESPIRATION: Unlabored equal air entry, deep inspiratory wheezing, breath sounds diminished in the bases. ABDOMEN: Soft, nontender . No guarding. no masses palpable. No ascites, No hepatosplenomegaly.Bowel sounds heard. LEGS: Minimal edema, no calf pain, no clubbing, no cyanosis, positive DP pulse NERVOUS SYSTEM: Cranial N 2-12 grossly normal. Fine tremors, no focal deficits. Skin: Warm and dry, no rashes noted CBC & Chem 7: 02/10/24 10:40 02/10/24 10:40 Labs: Abnormal Lab Results - Last 24 Hours (Table) 02/09/24 02/10/24 02/10/24 Range/Units 14:58 10:40 10:40 Lymphocytes # 0.8 L (1.0-4.8) k/uL Creatinine 0.57 L 0.65 L (0.66-1.25) mg/dL Glucose 143 H (74-99) mg/dL Total Bilirubin 2.1 H (0.2-1.3) mg/dL C-Reactive Protein 1.7 H (<1.0) mg/dL Assessment and Plan Assessment: Progressive shortness of breath accompanied by sore throat x 2 weeks, audible stridor Right-sided pleural effusion Alcohol abuse, drinks 3 x 12 ounce beers daily Gastroesophageal reflux disease Chronic dysphagia Parkinson's disease Prior nicotine dependence Plan: Continue on current medication regimen ,monitoring and symptomatic treatment. Maintain IV steroids. ENT consult in place. Speech therapy consulted for swallow evaluation .CIWA protocol initiated. PPI for GI prophylaxis. The impression and plan of care has been dictated as directed. : I performed a history and examination of this patient, discussed the same with the dictator. I agree with the dictator's note ,documented as a scribe. Any additional findings or plans will be noted.
[2024-02-10] MEDS: INSULIN ASPART (NovoLOG) 100 UNIT/ML VIAL SQ SCH (16:10)
[2024-02-10] MEDS: FOLIC ACID 1 MG TAB PO SCH (16:11)
[2024-02-10] MEDS: PANTOPRAZOLE 40 MG/10 ML VIAL IVP SCH (16:11)
--- NOTE | 2024-02-11 15:58 | FL ---
Exam Date: 02/11/2024 2:05 PM. Modified barium swallow for dysphagia. Consistencies administered: Various consistency of barium. Fluoro time: 1 min 19 sec fluoro time No images were sent to PACS. Please see speech pathology report. DAP: 139.49 DAP mGym2 Gycm2 MBS with Myrtle/ LMF/ LC 1 min 19 sec fluoro time 139.49 DAP Pt given 1 oz everything [facility], , 02/11/2024 3:56 PM
--- NOTE | 2024-02-11 16:02 | P.PN ---
Subjective Progress Note Date: 02/11/24 Patient is a 73-year-old male with past medical history significant for hypertension, GERD, Parkinson's disease. He is a former smoker. Drinks 3, 12 ounce, beers per day. Initially, presented to emergency department yesterday morning with complaints of 2 weeks of painful swallowing and sore throat. Was treated with Z-Se on outpatient basis. He has had "noisy" breathing on and off for the last couple days. Presented emergency department for evaluation early yesterday morning, he was initially discharged home with instructions for outpatient follow up. Returned that evening with some shortness of breath. Denies any fevers. No drooling. No change in voice. Unclear HIB vaccination status. No known foreign body aspiration. Does have chronic ongoing issues with swallowing and food getting stuck in his throat per patient. CT of the soft tissue of the neck and chest with contrast showed patulous esophagus with layering ingested contents versus gastroesophageal reflux. Incidentally, there was some prominent retroperitoneal lymph nodes, and mediastinal lymph nodes, left sided cervical lymph nodes, and left axillary lymph nodes. Patient has no known history of malignancy. There is also a right pleural effusion with split pleural sign. Patient is currently being evaluated in the emergency department. He is sitting up in the bedside recliner. On room air. Not in any distress. There is some audible upper airway stridor. No palpable masses. Patient was started on IV steroids. ENT consult also placed. Patient may benefit from an laryngoscopy. CBC: WBC count 8.4, hemoglobin 13.8, hematocrit 42.2, platelets 297. CMP: Sodium 138, potassium 4.3, chloride 106, serum bicarb 26, BUN 9, creatinine 0.57, glucose 93. LFTs unremarkable. Not felt to be in any imminent danger of airway compromise. Heliox not available at our facility. continues on IV Decadron. The patient is seen today February 11, 2024 in follow-up on the selective care unit. He is currently sitting up in a chair at the bedside. Awake and alert in no acute distress. He is feeling better today compared to yesterday. He is maintaining good O2 saturations in the 90s on room air. No evidence of stridor. Ultrasound of the chest revealed a 1.9 cm pocket on the right. 0 cm on the left. No plans for thoracentesis. Hemoglobin A1c 5.3%, glucose 105. He remains on Decadron. Remains on the CIWA protocol. Normal saline at 75 mL/h. Barium swallow did not reveal any significant aspiration. He is recommended continuing a regular diet/thin liquids in the upright position. Objective - Vital Signs Vital signs: Vital Signs Temp 98.1 F 02/11/24 08:45 Pulse 80 02/11/24 15:23 Resp 18 02/11/24 14:00 BP 97/55 02/11/24 12:00 Pulse Ox 96 02/11/24 12:00 FiO2 Intake & Output 02/10/24 02/11/24 02/11/24 18:59 06:59 18:59 Intake Total 235 20 0 Output Total 510 Balance 235 -490 0 Weight 54.431 kg 67.4 kg Intake: IV 20 Invasive Line 1 10 Invasive Line 2 10 Oral 235 0 Output: Urine 510 Other: Voiding Method Urinal Urinal - Exam GENERAL EXAM: Alert, pleasant 73-year-old male, sitting up in a chair, on room air, comfortable in no apparent distress. HEAD: Normocephalic and atraumatic EYES: Normal reaction of pupils, equal size. NOSE: Clear with pink turbinates. THROAT: No erythema or exudates. No drooling. No dysphonia NECK: No palpable masses, no JVD. Audible stridor. CHEST: No chest wall deformity. LUNGS: Equal air entry with diminished right lower lobe lung sounds. No crackles, rhonchi, wheezes. CVS: S1 and S2 normal with no audible murmur, regular rhythm. No extra heart sounds ABDOMEN: No hepatosplenomegaly, active bowel sounds, no guarding or rigidity. SPINE: No scoliosis or deformity SKIN: No rashes CENTRAL NERVOUS SYSTEM: No focal deficits, tone is normal in all 4 extremities. Resting tremor noted. EXTREMITIES: There is minimal bilateral lower extremity edema. No clubbing, or cyanosis. Peripheral pulses are intact. - Labs CBC & Chem 7: 02/10/24 10:40 02/10/24 10:40 Assessment and Plan Assessment: Stridor, without imminent threat of airway compromise. Currently on IV Decadron. Stable and on room air Odynophagia, barium swallow revealed no evidence of aspiration History of Parkinson's disease Chronic dysphagia History of GERD Generalized lymphadenopathy Right-sided pleural effusion Alcohol abuse, reportedly drinks 3, 12 ounce beers per day Former tobacco smoker Plan: The patient was seen and evaluated Barium swallow, labs and medications reviewed Recommended regular diet/thin with liquids, no straws Stable and on room air, no evidence of stridor Discontinue Decadron Stable for discharge from the pulmonary standpoint I have personally seen and examined the patient, performed the documentation and the assessment and plan as written. Number of minutes spent on the visit: 10.
[2024-02-12 06:52] LABS: African American GFR (CKD) >90 (>60 ml/min/1.73 sqM); Anion Gap 6 mmol/L; Blood Urea Nitrogen 19 mg/dL (9-20); Calcium 8.7 mg/dL (8.4-10.2); Carbon Dioxide 28 mmol/L (22-30); Chloride 102 mmol/L (98-107); Glucose 90 mg/dL (74-99); Non-African American GFR(CKD) >90 (>60 ml/min/1.73 sqM); Potassium 3.6 mmol/L (3.5-5.1); Sodium 136 mmol/L (137-145)
--- NOTE | 2024-02-12 08:40 | P.DS ---
Providers Date of admission: 02/09/24 18:26 Expected date of discharge: 02/12/24 Attending physician: Dhaval Fontana Consults: 02/09/24 18:23 Consult Physician Urgent Consulting Provider: Letha Purcell Consult Reason/Comments: worsening stridor Do you want consulting provider notified?: Yes Consult Physician Urgent Consulting Provider: Patrick Alfaro Consult Reason/Comments: stridor Do you want consulting provider notified?: Yes Primary care physician: Dhaval Fontana Hospital Course: Final Diagnoses: Patient Condition at Discharge: Stable Plan - Discharge Summary Discharge Rx Participant: Yes New Discharge Prescriptions: New Folic Acid 1 mg PO DAILY tab Multivitamins, Thera [Multivitamin (formulary)] 1 each PO DAILY tab Thiamine [Vitamin B-1] 100 mg PO DAILY tab Continue rOPINIRole HCL [Requip] 3 mg PO TID Aspirin EC [Ecotrin] 325 mg PO DAILY Metoprolol Succinate (ER) [Toprol XL] 100 mg PO DAILY Furosemide [Lasix] 20 mg PO DAILY Carbidopa-Levodopa 25-100 mg [Sinemet 25-100 mg] 1 tab PO TID Discharge Medication List Aspirin EC [Ecotrin] 325 mg PO DAILY 02/09/24 [History] Carbidopa-Levodopa 25-100 mg [Sinemet 25-100 mg] 1 tab PO TID 02/09/24 [History] Furosemide [Lasix] 20 mg PO DAILY 02/09/24 [History] Metoprolol Succinate (ER) [Toprol XL] 100 mg PO DAILY 02/09/24 [History] rOPINIRole HCL [Requip] 3 mg PO TID 02/09/24 [History] Folic Acid 1 mg PO DAILY tab 02/12/24 [Rx] Multivitamins, Thera [Multivitamin (formulary)] 1 each PO DAILY tab 02/12/24 [Rx] Thiamine [Vitamin B-1] 100 mg PO DAILY tab 02/12/24 [Rx] Follow up Appointment(s)/Referral(s): Letha Purcell MD [STAFF PHYSICIAN] - 1 Week Dhaval Fontana DO [Primary Care Provider] - 3 Days Patrick Alfaro MD [STAFF PHYSICIAN] - 1 Week Activity/Diet/Wound Care/Special Instructions: Diet: Regular diet/thin liquids, small bites and sips, no straws
--- NOTE | 2024-02-12 13:38 | P.PN ---
Subjective Progress Note Date: 02/12/24 Patient is a 73-year-old male with past medical history significant for hypertension, GERD, Parkinson's disease. He is a former smoker. Drinks 3, 12 ounce, beers per day. Initially, presented to emergency department yesterday morning with complaints of 2 weeks of painful swallowing and sore throat. Was treated with Z-Se on outpatient basis. He has had "noisy" breathing on and off for the last couple days. Presented emergency department for evaluation early yesterday morning, he was initially discharged home with instructions for outpatient follow up. Returned that evening with some shortness of breath. Denies any fevers. No drooling. No change in voice. Unclear HIB vaccination status. No known foreign body aspiration. Does have chronic ongoing issues with swallowing and food getting stuck in his throat per patient. CT of the soft tissue of the neck and chest with contrast showed patulous esophagus with layering ingested contents versus gastroesophageal reflux. Incidentally, there was some prominent retroperitoneal lymph nodes, and mediastinal lymph nodes, left sided cervical lymph nodes, and left axillary lymph nodes. Patient has no known history of malignancy. There is also a right pleural effusion with split pleural sign. Patient is currently being evaluated in the emergency department. He is sitting up in the bedside recliner. On room air. Not in any distress. There is some audible upper airway stridor. No palpable masses. Patient was started on IV steroids. ENT consult also placed. Patient may benefit from an laryngoscopy. CBC: WBC count 8.4, hemoglobin 13.8, hematocrit 42.2, platelets 297. CMP: Sodium 138, potassium 4.3, chloride 106, serum bicarb 26, BUN 9, creatinine 0.57, glucose 93. LFTs unremarkable. Not felt to be in any imminent danger of airway compromise. Heliox not available at our facility. continues on IV Decadron. The patient is seen today February 11, 2024 in follow-up on the selective care unit. He is currently sitting up in a chair at the bedside. Awake and alert in no acute distress. He is feeling better today compared to yesterday. He is maintaining good O2 saturations in the 90s on room air. No evidence of stridor. Ultrasound of the chest revealed a 1.9 cm pocket on the right. 0 cm on the left. No plans for thoracentesis. Hemoglobin A1c 5.3%, glucose 105. He remains on Decadron. Remains on the CIWA protocol. Normal saline at 75 mL/h. Barium swallow did not reveal any significant aspiration. He is recommended continuing a regular diet/thin liquids in the upright position. The patient is seen today February 12, 2024 in follow-up on the selective care unit. He is awake and alert in no acute distress. Sitting up in a chair at the bedside. Denies any worsening shortness of breath, cough or congestion. He is maintaining good O2 saturation in the 90s on room air. He remains on bronchodilators. Continued on oral diuretics. Tolerating a diet. Sodium 136. Potassium 3.6. Bicarb 28. BUN 19. Creatinine 0.61. Glucose 90. He has remained calm and cooperative. He has not required any Ativan. Objective - Vital Signs Vital signs: Vital Signs Temp 97.9 F 02/12/24 11:12 Pulse 72 02/12/24 12:03 Resp 17 02/12/24 11:12 BP 108/62 02/12/24 11:12 Pulse Ox 98 02/12/24 11:12 FiO2 Intake & Output 02/11/24 02/12/24 02/12/24 18:59 06:59 18:59 Intake Total 120 20 120 Output Total 300 600 Balance -180 -580 120 Weight 68.2 kg Intake: IV 20 Invasive Line 1 10 Invasive Line 2 10 Oral 120 120 Output: Urine 300 600 Other: Voiding Method Urinal Urinal - Exam GENERAL EXAM: Alert, 73-year-old male, up in a chair, on room air, comfortable in no apparent distress. HEAD: Normocephalic and atraumatic EYES: Normal reaction of pupils, equal size. NOSE: Clear with pink turbinates. THROAT: No erythema or exudates. NECK: No palpable masses, no JVD. CHEST: No chest wall deformity. LUNGS: Equal air entry with diminished right lower lobe lung sounds. No crackles, rhonchi, wheezes. CVS: S1 and S2 normal with no audible murmur, regular rhythm. No extra heart sounds ABDOMEN: No hepatosplenomegaly, active bowel sounds, no guarding or rigidity. SPINE: No scoliosis or deformity SKIN: No rashes CENTRAL NERVOUS SYSTEM: No focal deficits, tone is normal in all 4 extremities. Resting tremor noted. EXTREMITIES: There is minimal bilateral lower extremity edema. No clubbing, or cyanosis. Peripheral pulses are intact. - Labs CBC & Chem 7: 02/10/24 10:40 02/12/24 06:09 Labs: Abnormal Lab Results - Last 24 Hours (Table) 02/12/24 Range/Units 06:09 Sodium 136 L (137-145) mmol/L Creatinine 0.61 L (0.66-1.25) mg/dL Assessment and Plan Assessment: Stridor, without imminent threat of airway compromise. Recovered. Decadron discontinued. Stable and on room air Odynophagia, barium swallow revealed no evidence of aspiration History of Parkinson's disease Chronic dysphagia History of GERD Generalized lymphadenopathy Right-sided pleural effusion Alcohol abuse, reportedly drinks 3, 12 ounce beers per day Former tobacco smoker Plan: The patient was seen and evaluated Labs and medications reviewed Stable and on room air, no evidence of stridor Stable for discharge from the pulmonary standpoint This patient was seen independently by the pulmonary nurse practitioner addressing pulmonary issues I have personally seen and examined the patient, performed the documentation and the assessment and plan as written. Number of minutes spent on the visit: 23.
--- NOTE | 2024-02-12 14:31 | P.PN ---
Subjective Progress Note Date: 02/11/24 H&P Date: 02/10/24 Chief Complaint: Shortness of breath This is a 73-year-old gentleman with past medical history significant for daily alcohol use, drinks 3 X 12 ounce beers daily, former nicotine dependence, Parkinson's disease, hypertension and multiple other medical issues, presented to the ER initially on 02/07 with shortness of breath x 2 weeks accompanied by sore throat, discharged home on azithromycin. Returned to the ER with worsening shortness of breath-audible upper airway stridor accompanied by sore throat. Denies aspiration of or choking of food or foreign object. reports worsening of symptoms with his inhaler. denies drooling ,nausea, vomiting. Reports no difficulty swallowing his food. Denies change in voice. Denies fevers or chi lls. CT of the chest and soft tissue of the neck reported patulous esophagus with layering ingested contents versus gastroesophageal reflux, prominent retroperitoneal lymph nodes, mediastinal lymph nodes, left low in neck lymph nodes, and left axillary lymph nodes, right pleural effusion possibly complex pleural effusion judges empyema given split pleural sign, indeterminate left adrenal nodule measuring 13 mm. Reports no known history of malignancy. Afebrile, normal WBC, CRP 1.7,sitting up in chair, maintaining O2 sats in the high 90s on room air. ENT on consult. Continues on IV Decadron. Hematology and chemistry panels unremarkable, repeat labs pending. 02-11-24 modified barium swallow pending. Continues on Decadron, stridor lessening. denies chest pain, palpitations or increase in shortness of breath. Maintaining O2 sats in the high 90s on room air. Continues on IV fluid hy dration. Afebrile. Objective - Vital Signs Vital signs: Vital Signs Temp 98.1 F 02/11/24 08:45 Pulse 68 02/11/24 12:00 Resp 18 02/11/24 12:00 BP 97/55 02/11/24 12:00 Pulse Ox 96 02/11/24 12:00 FiO2 Intake & Output 02/10/24 02/11/24 02/11/24 18:59 06:59 18:59 Intake Total 235 20 0 Output Total 510 Balance 235 -490 0 Weight 54.431 kg 67.4 kg Intake: IV 20 Invasive Line 1 10 Invasive Line 2 10 Oral 235 0 Output: Urine 510 Other: Voiding Method Urinal Urinal - Exam PHYSICAL EXAM: VITAL SIGNS: [Reviewed] GENERAL: Alert and oriented x 3, sitting up in chair, no acute distress. HEENT: Normocephalic, atraumatic, conjunctivae normal. eyes normal. NECK: Supple, no JVD. CARDIOVASCULAR: S1, S2 regular. No murmur RESPIRATION: Unlabored, equal air entry, minimal upper airway stridor. Bilateral bases diminished. ABDOMEN: Soft, nondistended, nontender . No guarding. no masses palpable. +BS LEGS: Minimal lower extremity edema, no calf tenderness, no clubbing or cyanosis. Positive DP pulses NERVOUS SYSTEM: Cranial N 2-12 grossly normal. No focal deficits. Parkinson tremors ,strength and sensation grossly intact. Skin: Warm and dry, no rash. - Labs CBC & Chem 7: 02/10/24 10:40 02/12/24 06:09 Labs: Abnormal Lab Results - Last 24 Hours (Table) 02/10/24 Range/Units 10:40 Magnesium 2.4 H (1.6-2.3) mg/dL Assessment and Plan Assessment: Progressive shortness of breath accompanied by sore throat x 2 weeks, audible stridor, stable Right-sided pleural effusion Alcohol abuse, drinks 3 x 12 ounce beers daily Gastroesophageal reflux disease Chronic dysphagia Parkinson's disease Prior nicotine dependence Prominent retroperitoneal lymph nodes, mediastinal lymph nodes, left Lowe and neck lymph nodes and left axillary lymph nodes, correlate for history of malignancy, indeterminate left adrenal nodule measuring 13 mm ,further follow-up outpatient with pulmonary. Plan: Continue on current medication regimen ,monitoring and symptomatic treatment. MBS pending, IV Decadron as per pulmonary. ENT consult in place, recommendations pending/follow-up outpatient. Discharge planning in progress pending final DC recommendations and clearance per pulmonary. The impression and plan of care has been dictated as directed. : I performed a history and examination of this patient, discussed the same with the dictator. I agree with the dictator's note ,documented as a scribe. Any additional findings or plans will be noted.
--- NOTE | 2024-02-12 14:42 | P.DS ---
Providers Date of admission: 02/09/24 18:26 Expected date of discharge: 02/12/24 Attending physician: Dhaval Fontana Consults: 02/09/24 18:23 Consult Physician Urgent Consulting Provider: Letha Purcell Consult Reason/Comments: worsening stridor Do you want consulting provider notified?: Yes Consult Physician Urgent Consulting Provider: Patrick Alfaro Consult Reason/Comments: stridor Do you want consulting provider notified?: Yes Primary care physician: Dhaval Fontana Hospital Course: Final Diagnoses: Progressive shortness of breath accompanied by sore throat x 2 weeks, audible stridor, stable Right-sided pleural effusion Alcohol abuse, drinks 3 x 12 ounce beers daily Gastroesophageal reflux disease Chronic dysphagia Parkinson's disease Prior nicotine dependence Prominent retroperitoneal lymph nodes, mediastinal lymph nodes, left Low in neck lymph nodes and left axillary lymph nodes, correlate for history of malignancy, indeterminate left adrenal nodule measuring 13 mm ,further follow-up outpatient with pulmonary. Hospital course:This is a 73-year-old gentleman with past medical history significant for daily alcohol use, drinks 3 X 12 ounce beers daily, former nicotine dependence, Parkinson's disease, hypertension and multiple other medical issues, presented to the ER initially on 02/07 with shortness of breath x 2 weeks accompanied by sore throat, discharged home on azithromycin. Returned to the ER with worsening shortness of breath-audible upper airway stridor accompanied by sore throat. Denies aspiration of or choking of food or foreign object. reports worsening of symptoms with his inhaler. denies drooling ,nausea, vomiting. Reports no difficulty swallowing his food. Denies change in voice. Denies fevers or chills. CT of the chest and soft tissue of the neck reported patulous esophagus with layering ingested contents versus gastroesophageal reflux, prominent retroperitoneal lymph nodes, mediastinal lymph nodes, left low in neck lymph nodes, and left axillary lymph nodes, right pleural effusion possibly complex pleural effusion judges empyema given split pleural sign, indeterminate left adrenal nodule measuring 13 mm. Reports no known history of malignancy. Afebrile, normal WBC, CRP 1.7,sitting up in chair, maintaining O2 sats in the high 90s on room air. ENT on consult. Continues on IV Decadron. Hematology and chemistry panels unremarkable, repeat labs pending. 02-11-24 modified barium swallow pending. Continues on Decadron, stridor lessening. denies chest pain, palpitations or increase in shortness of breath. Maintaining O2 sats in the high 90s on room air. Continues on IV fluid hydration. Afebrile. . Evaluated by PT, recommending subacute rehab. Patient's brought in his own walker and patient excelled. Patient and wish for patient to go home with outpatient PT. barium swallow failed to report significant aspiration with recommendations of regular diet thin liquids, small bites and sips, no straws, in upright position. Per pulmonary's review of CT of the soft tissue of the neck, no evidence of mass. Decadron discontinued yesterday, no further stridor. Denies chest pain, palpitations or shortness of breath. Maintains O2 sats in the high 90s on room air. Cleared by pulmonary for discharge. Patient will be discharged home today in a stable condition with guarded prognosis. Advised to follow-up with ENT outpatient. Prominent lymphadenopathy to be further followed up outpatient. The impression and plan of care has been dictated as directed. : I performed a history and examination of this patient, discussed the same with the dictator. I agree with the dictator's note ,documented as a scribe. Any additional findings or plans will be noted. Patient Condition at Discharge: Stable Plan - Discharge Summary Discharge Rx Participant: Yes New Discharge Prescriptions: New Folic Acid 1 mg PO DAILY tab Multivitamins, Thera [Multivitamin (formulary)] 1 each PO DAILY tab Thiamine [Vitamin B-1] 100 mg PO DAILY tab Continue rOPINIRole HCL [Requip] 3 mg PO TID Aspirin EC [Ecotrin] 325 mg PO DAILY Metoprolol Succinate (ER) [Toprol XL] 100 mg PO DAILY Furosemide [Lasix] 20 mg PO DAILY Carbidopa-Levodopa 25-100 mg [Sinemet 25-100 mg] 1 tab PO TID Discharge Medication List Aspirin EC [Ecotrin] 325 mg PO DAILY 02/09/24 [History] Carbidopa-Levodopa 25-100 mg [Sinemet 25-100 mg] 1 tab PO TID 02/09/24 [History] Furosemide [Lasix] 20 mg PO DAILY 02/09/24 [History] Metoprolol Succinate (ER) [Toprol XL] 100 mg PO DAILY 02/09/24 [History] rOPINIRole HCL [Requip] 3 mg PO TID 02/09/24 [History] Folic Acid 1 mg PO DAILY tab 02/12/24 [Rx] Multivitamins, Thera [Multivitamin (formulary)] 1 each PO DAILY tab 02/12/24 [Rx] Thiamine [Vitamin B-1] 100 mg PO DAILY tab 02/12/24 [Rx] Follow up Appointment(s)/Referral(s): Letha Purcell MD [STAFF PHYSICIAN] - 03/11/24 8:45 am Dhaval Fontana DO [Primary Care Provider] - 02/16/24 2:10 pm Patrick Alfaro MD [STAFF PHYSICIAN] - 1 Week (PLEASE CALL OFIICE WHEN OPEN TO MAKE FOLLOW UP APPOINTMENT) Activity/Diet/Wound Care/Special Instructions: Diet: Regular diet/thin liquids, small bites and sips, no straws
[2024-02-12 16:01] VITALS: BP 109/40; RESP 20; TEMP 98.5
[2024-02-12 16:26] VITALS: PULSE 75
[2024-02-13 06:58] LABS: Glucose,Whole Blood 85 mg/dL (70-110)
[2024-02-13 11:57] LABS: Glucose,Whole Blood 132 mg/dL (70-110)
[2024-02-13 11:57] LABS: Glucose,Whole Blood 187 mg/dL (70-110)
[2024-02-13 11:57] LABS: Glucose,Whole Blood 128 mg/dL (70-110)
[2024-02-13 11:58] LABS: Glucose,Whole Blood 116 mg/dL (70-110)
[2024-02-13 11:58] LABS: Glucose,Whole Blood 96 mg/dL (70-110)
[2024-02-13 11:58] LABS: Glucose,Whole Blood 198 mg/dL (70-110)
[2024-02-13 11:58] LABS: Glucose,Whole Blood 156 mg/dL (70-110)
[2024-02-13 11:58] LABS: Glucose,Whole Blood 151 mg/dL (70-110)
[2024-02-13 11:58] LABS: Glucose,Whole Blood 168 mg/dL (70-110)
== END 2024-02-12 17:58 | disposition home health service (06) ==
LOC: EC 14:25 → 3SCARD 18:26
PROVIDERS: ADMIT Family Medicine; ATTEND Family Medicine
DX: R06.1 Stridor (principal); R06.02 Shortness of breath; J02.9 Acute pharyngitis, unspecified; J90 Pleural effusion, not elsewhere classified; R59.1 Generalized enlarged lymph nodes; K21.9 Gastro-esophageal reflux disease without esophagitis; G20.A1 Parkinson's disease without dyskinesia, without mention of fluctuations; R13.10 Dysphagia, unspecified; I10 Essential (primary) hypertension; F10.10 Alcohol abuse, uncomplicated; Z87.891 Personal history of nicotine dependence; Z79.82 Long term (current) use of aspirin; Z79.899 Other long term (current) drug therapy
CPT/HCPCS: 96376 ×3; 96375 ×3; 96374 ×2; 99285; 36415; 94640 ×6; 93005; 97162; 97166; 92610; 92611; 80053; 80048 ×2; 83735; 85025 ×2; 86140; 83036; 74230; 76604; 70491; 71275; G0378 ×4; G0480; J1200; J1100 ×3; Q9967; J2919; J2470 ×3; 80320

== ENCOUNTER 2024-04-22 16:32 | Emergency (ER) | payer MEDICARE ==
[2024-04-22 16:45] VITALS: RESP 18
--- NOTE | 2024-04-22 17:41 | ED ---
Skin/Abscess/FB HPI - General Chief complaint: Skin/Abscess/Foreign Body Stated complaint: R foot swelling Time Seen by Provider: 04/22/24 16:51 Source: patient, family, RN notes reviewed Mode of arrival: wheelchair Limitations: no limitations - History of Present Illness Initial comments: This is a 74-year-old male presenting with for infection of right toe x 3 days. Patient states he noticed worsening swelling and redness of his right distal toes which may have started a few days prior to that. Endorses recent elastic around the base of his right second toe which may have been an entry point for bacterial infection. Patient denies fever, chills or other symptoms. Onset/Timin -: days(s) Location: R foot Associated symptoms: denies other symptoms Treatments Prior to Arrival: none - Related Data Home Medications Medication Instructions Recorded Confirmed Aspirin EC [Ecotrin] 325 mg PO DAILY 02/09/24 02/09/24 Carbidopa-Levodopa 25-100 mg 1 tab PO TID 02/09/24 02/09/24 [Sinemet 25-100 mg] Furosemide [Lasix] 20 mg PO DAILY 02/09/24 02/09/24 Metoprolol Succinate (ER) [Toprol 100 mg PO DAILY 02/09/24 02/09/24 XL] rOPINIRole HCL [Requip] 3 mg PO TID 02/09/24 02/09/24 Previous Rx's Medication Instructions Recorded Folic Acid 1 mg PO DAILY tab 02/12/24 Multivitamins, Thera [Multivitamin 1 each PO DAILY tab 02/12/24 (formulary)] Thiamine [Vitamin B-1] 100 mg PO DAILY tab 02/12/24 Cephalexin [Keflex] 500 mg PO Q6HR 14 Days #56 cap 04/22/24 Allergies Allergy/AdvReac Type Severity Reaction Status Date / Time No Known Allergies Allergy Verified 02/09/24 16:29 Review of Systems ROS Statement: Those systems with pertinent positive or pertinent negative responses have been documented in the HPI. ROS Other: All systems not noted in ROS Statement are negative. Past Medical History Past Medical History: Hypertension Additional Past Medical History / Comment(s): parkinsons History of Any Multi-Drug Resistant Organisms: None Reported Past Surgical History: Hernia Repair Past Psychological History: No Psychological Hx Reported Smoking Status: Never smoker Past Alcohol Use History: Occasional Past Drug Use History: None Reported General Exam Limitations: no limitations General appearance: alert, in no apparent distress Head exam: Present: atraumatic, normocephalic, normal inspection Eye exam: Present: normal appearance, PERRL, EOMI. Absent: scleral icterus, conjunctival injection, periorbital swelling ENT exam: Present: normal exam, mucous membranes moist Neck exam: Present: normal inspection. Absent: tenderness, meningismus, lymphadenopathy Respiratory exam: Present: normal lung sounds bilaterally. Absent: respiratory distress, wheezes, rales, rhonchi, stridor Cardiovascular Exam: Present: regular rate, normal rhythm, normal heart sounds. Absent: systolic murmur, diastolic murmur, rubs, gallop, clicks GI/Abdominal exam: Present: soft, normal bowel sounds. Absent: distended, tenderness, guarding, rebound, rigid Extremities exam: Present: full ROM, normal capillary refill, pedal edema (Right distal pedal edema, erythema and warmth of toes 2 through 5. Circumferential ulceration at base of second toe. Minimal tenderness to peripheral neuropathy), other (Right dorsalis pedis pulse +1). Absent: tenderness, joint swelling, calf tenderness Back exam: Present: normal inspection Neurological exam: Present: alert, oriented X3, CN II-XII intact Psychiatric exam: Present: normal affect, normal mood Skin exam: Present: warm, dry, intact, normal color. Absent: rash Course Vital Signs 04/22/24 16:41 Temperature 98.2 F Pulse Rate 71 Respiratory 18 Rate Blood Pressure 116/62 O2 Sat by Pulse 96 Oximetry Medical Decision Making - Medical Decision Making Was pt. sent in by a medical professional or institution (Dr. PA, HAND STRAIGHTENER, urgent care, hospital, or longterm...) When possible be specific @ -[No] Did you speak to anyone other than the patient for history (EMS, parent, family, police, friend...)? What history was obtained from this source @ -[No] Did you review nursing and triage notes (agree or disagree)? Why? @ -[I reviewed and agree with nursing and triage notes] Were old charts reviewed (outside hosp., previous admission, EMS record, old EKG, old radiological studies, urgent care reports/EKG's, longterm records)? Report findings @ -[No old charts were reviewed] Differential Diagnosis (chest pain, altered mental status, abdominal pain women, abdominal pain men, vaginal bleeding, weakness, fever, dyspnea, syncope, headache, dizziness, GI bleed, back pain, seizure, CVA, palpatations, mental health, musculoskeletal)? @ -Cellulitis, MRSA, necrotizing fasciitis, peripheral neuropathy, PAD, PVD, intermittent claudication, this is not an exhaustive list EKG interpreted by me (3pts min.). @ -Not done X-rays interpreted by me (1pt min.). @ -[None done] CT interpreted by me (1pt min.). @ -[None done] U/S interpreted by me (1pt. min.). @ -[None done] What testing was considered but not performed or refused? (CT, X-rays, U/S, labs)? Why? @ -[None] What meds were considered but not given or refused? Why? @ -[None] Did you discuss the management of the patient with other professionals (professionals i.e. , PA, HAND STRAIGHTENER, lab, RT, psych nurse, social insurance adviser, coal grader, teacher, animal control officer, pillowcase sewer)? Give summary @ -[No] Was smoking cessation discussed for >3mins.? @ -[No] Was critical care preformed (if so, how long)? @ -[No] Were there social determinants of health that impacted care today? How? (Homelessness, low income, unemployed, alcoholism, drug addiction, transportation, low edu. Level, literacy, decrease access to med. care, retirement, r ehab)? @ -[No] Was there de-escalation of care discussed even if they declined (Discuss DNR or withdrawal of care, Hospice)? DNR status @ -[No] What co-morbidities impacted this encounter? (DM, HTN, Smoking, COPD, CAD, Cancer, CVA, ARF, Chemo, Hep., AIDS, mental health diagnosis, sleep apnea, morbid obesity)? @ -[None] Was patient admitted / discharged? Hospital course, mention meds given and rout e, prescriptions, significant lab abnormalities, going to OR and other pertinent info. @ -[hospital course] Undiagnosed new problem with uncertain prognosis? @ -[No] Drug Therapy requiring intensive monitoring for toxicity (Heparin, Nitro, Insulin, Cardizem)? @ -[No] Were any procedures done? @ -[No] Diagnosis/symptom? @ -Cellulitis of foot Acute, or Chronic, or Acute on Chronic? @ -Acute Uncomplicated (without systemic symptoms) or Complicated (systemic symptoms)? @ -Uncomplicated Side effects of treatment? @ -[No] Exacerbation, Progression, or Severe Exacerbation? @ -[No] Poses a threat to life or bodily function? How? (Chest pain, [place], [place], pneumonia, PE, COPD, DKA, ARF, appy, cholecystitis, CVA, Diverticulitis, Homicidal, Suicidal, threat to staff... and all critical care pts) @ -[No] - Lab Data Result diagrams: 04/22/24 18:46 Lab Results 04/22/24 Range/Units 18:46 WBC 9.3 (3.8-10.6) k/uL RBC 4.31 (4.30-5.90) m/uL Hgb 12.9 L (13.0-17.5) gm/dL Hct 40.2 (39.0-53.0) % MCV 93.2 (80.0-100.0) fL MCH 30.0 (25.0-35.0) pg MCHC 32.2 (31.0-37.0) g/dL RDW 15.0 (11.5-15.5) % Plt Count 280 (150-450) k/uL MPV 6.8 Neutrophils % 62 % Lymphocytes % 26 % Monocytes % 5 % Eosinophils % 4 % Basophils % 0 % Neutrophils # 5.8 (1.3-7.7) k/uL Lymphocytes # 2.5 (1.0-4.8) k/uL Monocytes # 0.4 (0-1.0) k/uL Eosinophils # 0.4 (0-0.7) k/uL Basophils # 0.0 (0-0.2) k/uL Disposition Clinical Impression: Cellulitis Disposition: HOME SELF-CARE Condition: Good Instructions (If sedation given, give patient instructions): Cellulitis (ED) Prescriptions: Cephalexin [Keflex] 500 mg PO Q6HR 14 Days #56 cap Is patient prescribed a controlled substance at d/c from ED?: No Referrals: Dhaval Fontana DO [Primary Care Provider] - 1-2 days Time of Disposition: 18:26
[2024-04-22 18:57] LABS: Basophils % (A) 0 %; Eosinophils # (A) 0.4 k/uL (0-0.7); Eosinophils % (A) 4 %; HCT 40.2 % (39.0-53.0); HGB 12.9 gm/dL (13.0-17.5); Lymphocytes # (A) 2.5 k/uL (1.0-4.8); Lymphocytes % (A) 26 %; MCHC 32.2 g/dL (31.0-37.0); MCV 93.2 fL (80.0-100.0); Mean Platelet Volume 6.8; Monocytes # (A) 0.4 k/uL (0-1.0); Monocytes % (A) 5 %; Neutrophils # (A) 5.8 k/uL (1.3-7.7); Neutrophils % (A) 62 %; Platelet Count 280 k/uL (150-450); RBC 4.31 m/uL (4.30-5.90); WBC 9.3 k/uL (3.8-10.6)
[2024-04-22] MEDS: VANCOMYCIN 1,250 MG in SODIUM CHLORIDE 0.9% 250 ML IVPB STA (19:02)
[2024-04-22 19:14] LABS: ALT 7 U/L (4-49); African American GFR (CKD) >90 (>60 ml/min/1.73 sqM); Anion Gap 1 mmol/L; Blood Urea Nitrogen 13 mg/dL (9-20); Calcium 8.7 mg/dL (8.4-10.2); Carbon Dioxide 31 mmol/L (22-30); Chloride 106 mmol/L (98-107); Glucose 85 mg/dL (74-99); Non-African American GFR(CKD) >90 (>60 ml/min/1.73 sqM); Sodium 138 mmol/L (137-145); Total Bilirubin 1.7 mg/dL (0.2-1.3)
[2024-04-22 19:15] LABS: AST 54 U/L (17-59); Albumin 4.2 g/dL (3.5-5.0); Alkaline Phosphatase 63 U/L (38-126); Potassium 4.9 mmol/L (3.5-5.1); Total Protein 6.8 g/dL (6.3-8.2)
--- NOTE | 2024-04-22 20:37 | XR ---
EXAMINATION TYPE: XR foot limited RT DATE OF EXAM: 04/22/2024 8:24 PM CLINICAL INDICATION:Male, 74 years old with history of Distal cellulitis with edema; [facility] COMPARISON: None TECHNIQUE: The right foot was examined in the frontal and lateral. FINDINGS: No evidence of any acute osseous pathology. Hammertoe deformities are identified. No osseous erosion. Remote fifth metatarsal deformity. Vascular calcifications of the vessels of the foot are present. IMPRESSION: No acute osseous process. [facility], , 04/22/2024 8:35 PM
[2024-04-22 21:19] VITALS: BP 117/71; PULSE 70; TEMP 98
[2024-04-23] MEDS ORDERED: VANCOMYCIN 1,000 MG in SODIUM CHLORIDE 0.9% 250 ML IVPB SCH (07:00)
== END 2024-04-22 21:32 | disposition home or self-care (01) ==
LOC: EC 16:32
DX: L03.031 Cellulitis of right toe (principal)
CPT/HCPCS: 36415; 80053; 85025; 73620; 99283; 96365; 96366; J3370